=== PATIENT | female | born 1990 | race Caucasian/White ===

== ENCOUNTER 2017-10-13 05:36 | Emergency (ER) | payer SELFPAY ==
[~2017-10-13] VITALS: Ht 162.6 cm; Wt 55.6 kg
[~2017-10-13 05:36] MED LIST: HYDR-3237 PO; IBUP-1223 PO; NITR100C56 PO
[2017-10-13 05:38] VITALS: BP 134/89
== END 2017-10-13 07:32 | disposition home or self-care (01) ==
LOC: ED 06:09
DX: S80.211A Abrasion, right knee, initial encounter (principal); V19.9XXA Pedal cyclist (driver) (passenger) injured in unspecified traffic accident, initial encounter; Y93.55 Activity, bike riding; Y92.410 Unspecified street and highway as the place of occurrence of the external cause; Y99.8 Other external cause status
CPT/HCPCS: 99284